=== PATIENT | male | born 1990 | race Asian ===

== ENCOUNTER 2018-05-19 23:42 | Emergency (ER) | payer OTHER ==
[~2018-05-19] VITALS: Ht 170.2 cm; Wt 74.8 kg
[2018-05-19 23:45] VITALS: BP 157/100
[2018-05-19] MEDS ORDERED: LIDOCAINE-MPF 1%, 5ML ONE (23:49)
[2018-05-20] MEDS ORDERED: LIDOCAINE-MPF 1%, 5ML INFIL ONE
[2018-05-20] MEDS ORDERED: DIPH,PERTUSS(ACELL),TET VAC/PF 0.5 ML IM-VACC ONE ×2 (00:28)
[2018-05-20] MEDS ORDERED: LIDOCAINE-MPF 1%, 5ML ONE (00:54)
== END 2018-05-20 01:52 | disposition home or self-care (01) ==
LOC: ED 05-20 01:46
DX: S62.661B Nondisplaced fracture of distal phalanx of left index finger, initial encounter for open fracture (principal); X58.XXXA Exposure to other specified factors, initial encounter; Y93.89 Activity, other specified; Y92.69 Other specified industrial and construction area as the place of occurrence of the external cause; Y99.0 Civilian activity done for income or pay
CPT/HCPCS: 29130; 90471; 90715